=== PATIENT | female | born 1955 | race Caucasian/White ===

== ENCOUNTER 2019-11-21 21:31 | Emergency (ER) | payer MEDICARE, OTHER ==
[~2019-11-21] VITALS: Ht 165.1 cm; Wt 74.8 kg
--- NOTE | ~2019-11-21 | EKG ---
[place] [address] ELECTROCARDIOGRAM REPORT Name: AUNG EDGAR Room: [facility]#: [id number] Admission: Attend Phys: Discharge: Date of : 51 Date of Service: 11/21/192135 Report #: [id number] THIS REPORT FOR: cc: FAM - Family physician unknown Little Fitch MD ~ THIS REPORT FOR: //name// [facility] ED Test Date: 2019-11-21 Test Time: 21:36:34 Pat Name: AUNG EDGAR Department: Room: Gender: F Preparer: CO : 1955 Requested By: Karen Sharma Order Number: [id number] MD: Measurements Intervals Prole Rate: 96 P: 47 ID: [id number] QRS: 52 QRSD: 91 T: 13 QT: 345 QTc: 436 Interpretive Statements Sinus tachycardia Multiple ventricular premature complexes Low voltage, precordial leads Borderline T abnormalities, anterior leads Compared to ECG 07/31/2014 13:38:13 Ventricular premature complex(es) now present Low QRS voltage now present Sinus rhythm no longer present T-wave abnormality still present [email or web address] By: 35 35 Epiphany Epiphany, /SIM
[~2019-11-21 21:31] MED LIST: ALLEGRA ALLERG180 MG PO; ATIVAN1 M1 PO; BUPROPION XL300 MG PO; DESYREL150 MG PO; DIPHENHIST50 MG PO; EFFEXOR 5050 MG/1 T1 PO; EFFEXOR XR150 MG PO; LEVOXYL125 MCG PO; OMEPRAZOLE40 MG PO; SEROQUEL 50 MG50 MG PO; TRAZODONE HCL100 MG PO; VERAPAMIL ER180 M1 PO; WELLBUTRIN XL150 MG PO; ZIPRASIDONE HCL20 M1 PO
[2019-11-21] MEDS ORDERED: ATIVAN1 M1 PO (21:40)
[2019-11-21 22:07] LABS: ABSOLUTE EOSINOPHILS 0.2 thou/uL (0.0-0.7); ABSOLUTE LYMPHOCYTES 1.1 thou/uL (0.8-5.3); ABSOLUTE MONOCYTES 0.4 thou/uL (0.0-1.2); ABSOLUTE NEUTROPHILS 3.6 thou/uL (1.6-8.1); BASOPHILS 0.9 %; EOSINOPHILS 3.7 %; HEMATOCRIT 33.7 % (37.0-47.0); HEMOGLOBIN 11.8 gm/dL (12.0-15.0); LYMPHOCYTES 19.8 %; MCH 31.9 pg (26.0-34.0); MCHC 35.1 g/dL (28.0-37.0); MONOCYTES 6.9 %; MPV 6.4 fl. (7.2-11.1); NUCLEATED RBCS 0 /100WBC; PLATELET COUNT* 267 thou/uL (150-400); POLYS 68.7 %; RDW-CV 14.1 % (10.5-14.5); WBC 5.3 thou/uL (4.0-11.0)
[2019-11-21 22:11] LABS: URINE BILIRUBIN NEGATIVE (Negative); URINE BLOOD TRACE (Negative); URINE CLARITY CLEAR; URINE COLOR YELLOW; URINE GLUCOSE-RANDOM TRACE (Negative); URINE KETONES NEGATIVE (Negative); URINE LEUKOCYTES-REFLEX NEGATIVE (Negative); URINE NITRITE-REFLEX NEGATIVE (Negative); URINE PROTEIN NEGATIVE (Negative); URINE UROBILINOGEN 0.2 E.U./dl (0.2-1.0)
[2019-11-21 22:15] LABS: CALCIUM 8.2 mg/dL (8.5-10.1); CREATININE 0.9 mg/dL (0.6-1.3); POTASSIUM 3.2 mmol/L (3.5-5.1)
[2019-11-21 22:18] LABS: INR 1.2; PROTIME 11.8 Seconds (9.20-11.50)
[2019-11-21 22:26] LABS: ALBUMIN 3.6 g/dL (3.4-5.0); TOTAL BILIRUBIN 0.3 mg/dL (<0.1-1.0); TOTAL PROTEIN 6.6 g/dL (6.4-8.2)
[2019-11-21] MEDS ORDERED: POTASSIUM20 PO (23:09)
[2019-11-21 23:23] VITALS: BP 119/62
== END 2019-11-21 23:26 | disposition home or self-care (01) ==
LOC: M.ERS 21:31
PROVIDERS: Emergency Medicine
DX: E87.6 Hypokalemia (principal); R00.2 Palpitations; F32.9 Major depressive disorder, single episode, unspecified; G43.909 Migraine, unspecified, not intractable, without status migrainosus; Z85.3 Personal history of malignant neoplasm of breast; Z98.84 Bariatric surgery status; Z90.710 Acquired absence of both cervix and uterus; Z88.5 Allergy status to narcotic agent; Z88.0 Allergy status to penicillin